=== PATIENT | female | born 1975 | race Hispanic/Latino ===

== ENCOUNTER 2025-01-02 11:55 | Emergency (ER) | payer MEDICARE ==
[~2025-01-02] VITALS: Ht 162.6 cm; Wt 101.6 kg
[2025-01-02 12:17] VITALS: PULSE 87; RESP 17; TEMP 99; O2SAT 100
[2025-01-02] MEDS ORDERED: MUPIROCIN22 GM TOP (12:26)
[2025-01-02] MEDS ORDERED: DOXYCYCLINE HY100 MG PO (12:26)
[2025-01-02] MEDS ORDERED: CEPHALEXIN500 MG PO (12:28)
== END 2025-01-02 12:40 | disposition home or self-care (01) ==
LOC: ER 12:25
DX: L02.412 Cutaneous abscess of left axilla (principal); I10 Essential (primary) hypertension; E11.9 Type 2 diabetes mellitus without complications; E78.5 Hyperlipidemia, unspecified
CPT/HCPCS: 99282